=== PATIENT | male | born 1965 | race Caucasian/White ===

== ENCOUNTER → 2016-06-28 | Outpatient (CLI) | payer OTHER ==
[~2016-06-28] MED LIST: AMBIEN 5MG TAB5 MG PO; ASPI-COR81 M1 PO; ATORVASTATIN CA80 MG PO; CARVEDILOL3.125 M1 PO; CIPRO 500MG TA500 MG PO; CLOPIDOGREL75 M2 PO; FENOFIBRATE54 MG PO; GABAPENTIN 100100 MG GT; HYDROCODONE1 TABLET PO; NITROGLYCERIN0.4 MG SL; TRAMADOL 50MG T50 MG PO; TRAZODONE HCL50 MG PO
--- NOTE | 2016-06-28 20:36 | RADIOLOGY REPORT PS360 ---
ANKLE-RT-3 VIEWS ORDERING PHYSICIAN : Anastasiya Beal APRN PATIENT AGE: 51 years GENDER: Male INDICATION: SWOLLEN ANKLE TECHNIQUE: 3 views right ankle COMPARISON: FINDINGS The dome of talus is intact. Joint spaces well-maintained. The medial and lateral malleolus intact. Ankle mortise generous. Question possible small joint effusion possibly present, bulging anteriorly at ankle joint on lateral view. Subtalar joint intact although question perhaps mild early sclerosis along the angle [place] There is a prominent, large os trigonum seen posteriorly measuring up to 16 mm AP and nearly 8 mm height . This requires correlation as can be a source of pain particularly if patient active or water. -----IMPRESSION: ------ Ankle mortise intact Only Question small joint effusion at the ankle joint bulging anteriorly Incidental note prominent, large os trigonum posterior ankle joint -Nonspecific observation but can be a source of pain posteriorly, particularly if patient active.
== END ==
LOC: RAD 14:47
DX: M25.471 Effusion, right ankle (principal)

== ENCOUNTER → 2017-03-18 | Outpatient (CLI) | payer OTHER ==
--- NOTE | 2017-03-19 06:32 | RADIOLOGY REPORT PS360 ---
[id number] (PINKY)-3 VIEWS CLINICAL INDICATION: Pain following injury PAIN,INJURY PLAYING FOOTBALL ORDERING PHYSICIAN: Rosemary MENESES PATIENT AGE: 51 years COMPARISON: None FINDINGS: There is a small avulsion injury involving the anterior and proximal aspect of middle phalanx of the fifth digit with only minimal proximal displacement of the fracture fragment by approximately 1 mm. IMPRESSION: Avulsion fracture middle phalanx fifth digit
--- NOTE | 2017-03-19 06:37 | RADIOLOGY REPORT PS360 ---
[id number]-[id number]-JY-3 VIEWS HISTORY: LEFT RIB PAIN,INJURY PLAYING FOOTBALL ORDERING PHYSICIAN: Rosemary MENESES PATIENT AGE: 51 years COMPARISON: None FINDINGS: A frontal view of the chest shows no evidence of pneumothorax or pulmonary contusion.. Multiple views of the Left ribs were obtained. There is a nondisplaced fracture involving the posterior aspect of the left eighth ninth and 10th ribs IMPRESSION: Nondisplaced left seventh through 10th rib fractures
== END ==
LOC: RAD 16:12
DX: M65.352 Trigger finger, left little finger (principal); R07.81 Pleurodynia